=== PATIENT | male | born 1955 | race Caucasian/White ===

== ENCOUNTER 2019-10-02 12:34 | Outpatient (CLI) | payer OTHER, SELFPAY ==
--- NOTE | ~2019-10-02 | XR_ITS ---
EXAMINATION: XR lg joint inject/asp w image DATE: 10/02/2019 13:35 INDICATION: Left hip arthritis TECHNIQUE: A time-out was performed to verify the patient's name, date of , and procedure to b e performed. The procedure including the risks, benefits, and alternatives was discussed with the pat ient. Risks discussed included bleeding and infection. The patient understood the risks and agreed to proceed. The skin overlying the left hip joint was prepped and draped in usual sterile fashion. An esthetic was administered with 1% lidocaine subcutaneously. A 22 G needle was advanced under fluoros copic guidance into the joint. Injection of 0.6 mL of Omnipaque 240 confirmed intra-articular positi on of the needle. Subsequently, injectate consisting of 3 mm of a 2:1 mixture of 0.5% bupivacaine: 8 0 mg/mL Depo-Medrol for a total dose of 80 mg Depo-Medrol was instilled. Washout of contrast was seen confirming intra-articular administration. The needle was removed and the entry site was cleaned and dressed. There were no immediate complications. Fluoroscopy exposure time was 0.1 minutes. The tota l number of images was 2. FINDINGS: Real-time fluoroscopy demonstrates the needle in the left hip joint. Patient's pain prior t o procedure:3/10. Patient's pain following the procedure: 0/10. IMPRESSION: 1. Left hip joint injection of local anesthetic and steroid with decrease in the patient's presenting pain. Reviewed, dictated and finalized at location A. IMPRESSION: 1. Left hip joint injection of local anesthetic and steroid with decrease in th e patient's presenting pain.
== END 2019-10-02 12:35 | disposition home or self-care (01) ==
PROVIDERS: PCP Internal Medicine; Visit Provider Orthopaedic Surgery
DX: M16.12 Unilateral primary osteoarthritis, left hip (principal)
CPT/HCPCS: 20610; 77002; J1040; Q9966

== ENCOUNTER 2020-01-15 06:32 | Outpatient (CLI) | payer OTHER, SELFPAY ==
--- NOTE | ~2020-01-15 | XR_ITS ---
EXAMINATION: XR lg joint inject/asp w image DATE: 01/15/2020 09:55 INDICATION: Left hip arthritis. TECHNIQUE: A time-out was performed to verify the patient's name, date of , and procedure to b e performed. The procedure including the risks, benefits, and alternatives was discussed with the pat ient. Risks discussed included bleeding and infection. The patient understood the risks and agreed to proceed. The skin overlying the left hip joint was prepped and draped in usual sterile fashion. An esthetic was administered with 1% lidocaine subcutaneously. A 22 G needle was advanced under fluoros copic guidance into the joint. Injection of 1 mL of Omnipaque 240 confirmed intra-articular position of the needle. Subsequently, injectate consisting of 2 mL 0.5% bupivacaine and 1 mL 80 mg/mL Depo-M edrol was instilled. The needle was removed and the entry site was cleaned and dressed. There were no immediate complications. Fluoroscopy exposure time was 0.1 minutes. The total number of images was 2. FINDINGS: Real-time fluoroscopy demonstrates the needle in the left hip joint. Patient's pain prior t o procedure:5/10. Patient's pain following the procedure: 0/10. IMPRESSION: 1. Fluoroscopy guided left hip joint injection of local anesthetic and steroid with decrease in the p atient's presenting pain. Reviewed, dictated and finalized at location A. [employer]STATE [employer] IMPRESSION: 1. Fluoroscopy guided left hip joint injection of local anesthetic and steroid with decrease in the patient's presenting pain.
== END 2020-01-15 06:33 | disposition home or self-care (01) ==
PROVIDERS: PCP Internal Medicine; Visit Provider Orthopaedic Surgery
DX: M16.12 Unilateral primary osteoarthritis, left hip (principal)
CPT/HCPCS: 20610; 77002; J1040; Q9966

== ENCOUNTER → 2020-03-22 12:45 | Outpatient (CLI) | payer OTHER, SELFPAY ==
[2020-03-22 18:26] LABS: SARS-CoV-2 RNA PCR Negative
== END ==
PROVIDERS: Family Provider Internal Medicine; PCP Internal Medicine; Visit Provider Internal Medicine Gastroenterology
DX: Z01.812 Encounter for preprocedural laboratory examination (principal); Z20.822 Contact with and (suspected) exposure to COVID-19
CPT/HCPCS: C9803; U0003; U0005

== ENCOUNTER 2020-03-25 01:15 | Day surgery (SDC) | payer OTHER, SELFPAY ==
[2020-03-10 08:48] VITALS: BMI 33.7
[2020-03-25 08:27] LABS: Glucose Point of Care 149 (65-105)
[2020-03-25 08:30] VITALS: BP 142/77; PULSE 82; RESP 17; TEMP 36.2; O2SAT 98; BMI 33.3
[2020-03-25] MEDS: LACTATED RINGERS 1,000 ML 150 ML IV CONT (08:38)
--- NOTE | 2020-03-25 09:40 | WPDGICN ---
GI Consult Note Consult date/time: 03/25/20 09:40 HPI: Reason for visit is colonoscopy. This very pleasant gentleman seen in consultation request the primary physician. Impression: Screening and surveillance colonoscopy. The patient's history adenomatous colon polyps. Tobacco use. Diabetes mellitus. HTN. HLD. Obesity. Neuropathy. PAVEL. Recommendation: Colonoscopy. History: This very pleasant gentleman is here for screening and surveillance colonoscopy. He has a history of multiple adenomatous colon polyps. He is here for screening and surveillance. Patient's GI review systems negative. Physical examination: General: very pleasant patient in no acute distress. HEENT: Head was normocephalic sclerae is clear mouth without masses neck was supple. Heart: Rate rhythm regular without S3 or S4. Lungs: CTA. Abdomen: Soft with no guarding or rigidity. Bowel sounds were active. Neurologic: Cranial nerves 2 through 12 intact. No focal defects. No clonus. Musculoskeletal system: Revealed no joint tenderness or swelling no muscle atrophy. Extremities: Reveal no significant edema. Skin: Warm and dry with normal turgor. Mental status: intact. Patient is alert and oriented. Review of Systems Review of Systems: All systems reviewed & are unremarkable except as noted in HPI and below PMFSH Family History Family History Mother Cerebrovascular accident Family history of diabetes mellitus in first degree relative Father Family history of pancreatic cancer, Onset Age: 72 Patient's father is Diabetes mellitus Family history of malignant neoplasm Social History Social History Smoking packs per day: 1 Smoking cigarettes per day: 20.0 Years smoked: 44 Smoking pack-years: 44.00 Smoking status: Current every day smoker Tobacco type: cigarettes Second hand tobacco smoke exposure: No Alcohol intake: current Alcohol use details: SOCIAL Substance use: never Substance use type: does not use Living arrangements: with family Gender identity (if verbalized by the patient): Male Spiritual care concerns: No Meds Home Medications and Allergies Home Medications Medication Instructions Recorded Confirmed Type aspirin 325 mg tablet 325 mg PO DAILY 02/06/19 03/25/20 History dapagliflozin 5 mg tablet 5 mg PO QAM 02/06/19 03/25/20 History dulaglutide 1.5 mg/0.5 mL 0.75 mg SUB-Q WEEKLY 02/06/19 03/25/20 History subcutaneous pen injector insulin aspart U-100 100 unit/mL 1 sliding scale dose SUB-Q 02/06/19 03/25/20 History subcutaneous solution USEASDIRECTD insulin detemir U-100 100 unit/mL 100 unit SUB-Q DAILY 02/06/19 03/25/20 History (3 mL) subcutaneous pen metformin 500 mg tablet 2,000 mg PO BID tablet 02/06/19 03/25/20 History multivitamin 1 tablet PO DAILY 02/06/19 03/25/20 History amlodipine 10 mg tablet 10 mg PO DAILY #90 tablet 11/09/19 03/25/20 Rx lisinopril 40 mg tablet 40 mg PO DAILY #90 tablet 11/19/19 03/25/20 Rx sildenafil 100 mg tablet 100 mg PO DAILY PRN #8 tablet 01/09/20 03/25/20 Rx atorvastatin 40 mg tablet 40 mg PO DAILY #90 tablet 02/12/20 03/25/20 Rx fluoxetine 20 mg capsule 20 mg PO DAILY #90 cap 02/17/20 03/25/20 Rx Allergies Allergy/AdvReac Type Severity Reaction Status Date / Time No Known Allergies Allergy Unknown Verified 03/25/20 08:27 Vital Signs Vital Signs - 24 hr 03/25/20 08:30 Temperature 36.2 C L Pulse Rate 82 Respiratory Rate 17 Blood Pressure 142/77 H Pulse Oximetry 98
--- NOTE | 2020-03-25 09:56 | WPDANESEPPF ---
Anes - Initial Pre Proc Eval Procedure: Operation Date: 03/25/20 09:30 Proposed Procedures p Screening Colonoscopy - Pepe Mathew DO Date/Time: 03/25/20 09:56 Surgeon: Pepe Mathew DO Pre Op Diagnosis: neoplasm Screening Patient Data Age: 64 Gender: M Height: 6 ft 2 in Weight: 117.9 kg Last Vital Signs Temp 97.1 F L 03/25/20 08:30 Pulse 82 03/25/20 08:30 Resp 17 03/25/20 08:30 BP 142/77 H 03/25/20 08:30 Pulse Ox 98 03/25/20 08:30 Allergies Allergy/AdvReac Type Severity Reaction Status Date / Time No Known Allergies Allergy Unknown Verified 03/25/20 08:27 Home Medications Medication Instructions Recorded Confirmed Type aspirin 325 mg tablet 325 mg PO DAILY 02/06/19 03/25/20 History dapagliflozin 5 mg tablet 5 mg PO QAM 02/06/19 03/25/20 History dulaglutide 1.5 mg/0.5 mL 0.75 mg SUB-Q WEEKLY 02/06/19 03/25/20 History subcutaneous pen injector insulin aspart U-100 100 unit/mL 1 sliding scale dose SUB-Q 02/06/19 03/25/20 History subcutaneous solution USEASDIRECTD insulin detemir U-100 100 unit/mL 100 unit SUB-Q DAILY 02/06/19 03/25/20 History (3 mL) subcutaneous pen metformin 500 mg tablet 2,000 mg PO BID tablet 02/06/19 03/25/20 History multivitamin 1 tablet PO DAILY 02/06/19 03/25/20 History amlodipine 10 mg tablet 10 mg PO DAILY #90 tablet 11/09/19 03/25/20 Rx lisinopril 40 mg tablet 40 mg PO DAILY #90 tablet 11/19/19 03/25/20 Rx sildenafil 100 mg tablet 100 mg PO DAILY PRN #8 tablet 01/09/20 03/25/20 Rx atorvastatin 40 mg tablet 40 mg PO DAILY #90 tablet 02/12/20 03/25/20 Rx fluoxetine 20 mg capsule 20 mg PO DAILY #90 cap 02/17/20 03/25/20 Rx Laboratory Tests 03/25/20 08:23 POC Capillary Glucose 149 mg/dl H mg/dl (65-105) Patient hx anesthesia problems: none Family hx anesthesia problems: none PMFSH Past Medical History Medical History (Updated 03/25/20 @ 09:55 by Orlin Rodriguez MD) Diabetes PAVEL (obstructive sleep apnea) Other hyperlipidemia Type 2 diabetes mellitus without complications Family History Family History Mother Cerebrovascular accident Family history of diabetes mellitus in first degree relative Father Family history of pancreatic cancer, Onset Age: 72 Patient's father is Diabetes mellitus Family history of malignant neoplasm Social History Social History Smoking packs per day: 1 Smoking cigarettes per day: 20.0 Years smoked: 44 Smoking pack-years: 44.00 Smoking status: Current every day smoker Tobacco type: cigarettes Second hand tobacco smoke exposure: No Alcohol intake: current Alcohol use details: SOCIAL Substance use: never Substance use type: does not use Living arrangements: with family Gender identity (if verbalized by the patient): Male Spiritual care concerns: No Anes - Eval Final PreProcedure Day of Procedure 03/25/20 09:56 Patient weight: overweight Heart: regular rate and rhythm Lungs: clear to auscultation Airway: Mallampati scale class II Neurological: alert and oriented Last oral intake: >/= 8 hours ASA classification: III Emergent: no Anesthetic plan: proceed Anesthesia type and monitoring: general GIVS and standard monitoring Informed Consent: The patient's anesthetic plan and its attendant risks and benefits were discussed with the patient/family/POA. Questions were solicited and answers provided to the satisfaction of the patient/family/POA.
[2020-03-25 10:57] VITALS: BP 125/74; PULSE 79; RESP 17; O2SAT 97
[2020-03-25 11:07] VITALS: BP 129/80; PULSE 74; RESP 18; O2SAT 97
--- NOTE | 2020-03-25 11:14 | SUR.PHASEII ---
SPOKE WITH GARY IN DR. JAIN'S OFFICE MADE AN APPOINTMENT FOR PT, APR [address] BURTON'S REQUEST, THIS INFORMATION WAS WRITTEN ON DISCHARGE PAPER FOR PT AND SHARED WITH DR BURTON
[2020-03-25 11:17] VITALS: BP 124/74; PULSE 73; RESP 21; O2SAT 98
== END 2020-03-25 11:30 | disposition home or self-care (01) ==
PROVIDERS: Family Provider Internal Medicine; PCP Internal Medicine; Visit Provider Internal Medicine Gastroenterology
PROC: 0DJD8ZZ Inspection of Lower Intestinal Tract, Via Natural or Artificial Opening Endoscopic (ICD-10-PCS; CPT 45378; principal; 2020-03-25 09:30)
DX: Z12.11 Encounter for screening for malignant neoplasm of colon (principal); D12.2 Benign neoplasm of ascending colon; D12.3 Benign neoplasm of transverse colon; E11.9 Type 2 diabetes mellitus without complications; G47.33 Obstructive sleep apnea (adult) (pediatric); E78.5 Hyperlipidemia, unspecified; I10 Essential (primary) hypertension; F17.210 Nicotine dependence, cigarettes, uncomplicated; Z79.84 Long term (current) use of oral hypoglycemic drugs; Z79.4 Long term (current) use of insulin; Z79.82 Long term (current) use of aspirin
CPT/HCPCS: 45385; 88305; J2001; J2704; J7120

== ENCOUNTER 2020-05-17 09:36 | Outpatient (CLI) | payer OTHER, SELFPAY ==
--- NOTE | ~2020-05-17 | XR_ITS ---
EXAMINATION: XR chest 2V 05/17/2020 11:16 INDICATION: Preop examination. PROCEDURE: PA and lateral views of the chest COMPARISON: 01/28/2018 FINDINGS: The lungs are clear. The cardiomediastinal silhouette is within normal limits. There are no pleural effusions. There is no pneumothorax suspected. IMPRESSION: 1: NO ACUTE CARDIOPULMONARY DISEASE. Reviewed, dictated and finalized at location A.
--- NOTE | 2020-05-17 10:54 | ECG_ITS ---
Measurements Intervals [place] Rate: 80 P: 16 NH: 156 QRS: 40 QRSD: 144 T: 36 QT: 415 QTc: 480 Interpretive Statements SINUS RHYTHM WITH SINUS ARRHYTHMIA RIGHT BUNDLE BRANCH BLOCK ABNORMAL ECG Electronically Signed On 05-17-2020 12:19:13 CDT by Vincent Chen D.O.
[2020-05-17 11:18] LABS: Basophils Absolute Auto 0.1 K/mm3 (0.0-0.1); Basophils Percent Auto 0.5 % (0.2-1.2); Eosinophils Absolute Auto 0.2 K/mm3 (0-0.3); Eosinophils Percent Auto 2.3 % (0-4.4); Hematocrit 48.4 % (42.0-52.0); Hemoglobin 16.2 g/dL (14.0-18.0); Immature Granulocyte Absolute 0.04 K/mm3 (0.00-0.031); Immature Granulocyte Percent A 0.4 % (0-0.5); Lymphocytes Absolute Auto 2.14 K/mm3 (0.9-3.2); Lymphocytes Percent Auto 22.6 % (18.3-44.2); Mean Corpuscular HGB Conc 33.5 g/dl (32-36); Mean Corpuscular Hemoglobin 30.1 pg (26-34); Mean Corpuscular Volume 89.8 fl (80-100); Mean Platelet Volume 8.4 fl (7.4-10.4); Monocytes Absolute Auto 0.8 K/mm3 (0.1-0.6); Monocytes Percent Auto 8.2 % (2.6-8.5); Neutrophils Absolute Auto 6.2 K/mm3 (1.3-6.7); Platelet Count Result 280 k/mm3 (150-375); Red Blood Count 5.39 M/mm3 (4.6-6.20); Red Cell Distribution Width 13.2 % (11.5-14.5); White Blood Count 9.5 K/mm3 (4.5-10.0)
[2020-05-17 11:31] LABS: Anion Gap 5 mmol/L (8-16); Blood Urea Nitrogen 19 mg/dL (9-20); Calcium 9.5 mg/dL (8.4-10.2); Carbon Dioxide 31 mmol/L (22-30); Chloride 102 mmol/L (98-107); Estimated Glomerular Filt Rate > 60; Glucose 131 mg/dL (75-110); Potassium 4.3 mmol/L (3.4-5.0); Sodium 138 mmol/L (137-145)
[2020-05-17 12:01] LABS: Carcinoembryonic Antigen 3.6 ng/mL (0.0-3.0)
== END 2020-05-17 09:37 | disposition home or self-care (01) ==
LOC: ANHSURGERY 09:38
PROVIDERS: PCP Internal Medicine; Visit Provider Surgery
DX: Z01.818 Encounter for other preprocedural examination (principal); E11.9 Type 2 diabetes mellitus without complications; Z87.891 Personal history of nicotine dependence; R94.31 Abnormal electrocardiogram [ECG] [EKG]
CPT/HCPCS: 36415; 71046; 80048; 82378; 85025; 86850; 86900; 86901; 93005

== ENCOUNTER → 2020-05-22 01:49 | Outpatient (CLI) | payer OTHER, SELFPAY ==
[2020-05-22 20:22] LABS: SARS-CoV-2 RNA PCR Negative
== END ==
PROVIDERS: PCP Internal Medicine; Visit Provider Surgery
DX: Z01.812 Encounter for preprocedural laboratory examination (principal); Z20.822 Contact with and (suspected) exposure to COVID-19
CPT/HCPCS: C9803; U0003; U0005

== ENCOUNTER 2020-05-26 12:14 | Inpatient (IN) | payer OTHER, SELFPAY ==
[2020-05-17 10:10] VITALS: BP 145/69; PULSE 84; RESP 18; TEMP 36.6; O2SAT 97; BMI 34.0
--- NOTE | 2020-05-25 08:16 | PM.IMHP ---
H&P: HPI History of Present Illness Date/Time: 05/25/20 08:16 Chief Complaint: Recurrent colon polyp Narrative: The patient is a 64-year-old man who was seen in the office after having repeat colonoscopy in late February of this year. He was noted to have a recurrent polyp in the proximal transverse colon. This polyp had been colonoscopically removed a couple of times prior to that. It had been tattooed after 1 of the removals. On the colonoscopy in February, the polyp had clearly recurred. This is at least a 2nd or 3rd recurrence. Patient was seen in the office. He has been prepared for surgery. He is taken to the operating room now for hand access laparoscopic right colectomy to remove this multiply recurrent proximal transverse colon polyp. Pathology on the polyp has shown tubular adenoma with no signs of malignancy. He has had no prior abdominal surgery. He is an insulin-dependent diabetic, a smoker, and has obstructive sleep apnea. Review of Systems Review of Systems: All systems reviewed & are unremarkable except as noted in HPI and below Constitutional: Constitutional: Denies headache(s) ENT: Denies headache(s) Cardiovascular: Cardiovascular: Denies chest pain and Denies dyspnea Respiratory: Respiratory: Denies cough and Denies dyspnea Gastrointestinal: Gastrointestinal: Reports as per HPI, Denies bloating, Denies constipation and Denies nausea Neurologic: Denies confusion and Denies headache(s) Psychiatric: Psychiatric: Denies abnormal sleep pattern, Denies confusion and Denies memory loss Allergic/Immunologic: Allergic/Immunologic: Reports seasonal rhinorrhea COUNTS INCLUDE 234 BEDS AT THE [facility] Past Medical History Medical History Diabetes Hypertension PAVEL (obstructive sleep apnea) Other hyperlipidemia Type 2 diabetes mellitus without complications Surgical History Surgical History History of colonoscopy Family History Family History Mother Cerebrovascular accident Family history of diabetes mellitus in first degree relative Father Family history of pancreatic cancer, Onset Age: 72 Patient's father is Diabetes mellitus Family history of malignant neoplasm Sibling Diabetes mellitus Social History Social History Smoking packs per day: 1.5 Smoking cigarettes per day: 30.0 Years smoked: 42 Smoking pack-years: 63.00 Smoking status: Current every day smoker Tobacco type: cigarettes Second hand tobacco smoke exposure: No Additional smoking assessment comments: REDUCING CIG TO APPROX 1/2 PACK/DAY CURRENTLY Alcohol intake: current Substance use: never Substance use type: does not use Additional living arrangements comments: [facility] Gender identity (if verbalized by the patient): Male Spiritual care concerns: No Meds Home Medications and Allergies Home Medications Medication Instructions Recorded Confirmed Type aspirin 325 mg tablet 325 mg PO DAILY 02/06/19 05/17/20 History dapagliflozin 5 mg tablet 5 mg PO QAM 02/06/19 05/17/20 History dulaglutide 1.5 mg/0.5 mL 0.75 mg SUB-Q WEEKLY 02/06/19 05/17/20 History subcutaneous pen injector insulin aspart U-100 100 unit/mL 1 sliding scale dose SUB-Q 02/06/19 05/17/20 History subcutaneous solution USEASDIRECTD insulin detemir U-100 100 unit/mL 65 unit SUB-Q BID 02/06/19 05/17/20 History (3 mL) subcutaneous pen metformin 500 mg tablet 2,000 mg PO QAM tablet 02/06/19 05/17/20 History multivitamin 1 tablet PO DAILY 02/06/19 05/17/20 History sildenafil 100 mg tablet 100 mg PO DAILY PRN #8 tablet 01/09/20 05/17/20 Rx atorvastatin 40 mg tablet 40 mg PO DAILY #90 tablet 02/12/20 05/17/20 Rx fluoxetine 20 mg capsule 20 mg PO DAILY #90 cap 02/17/20 05/17/20 Rx amlodipine 10 mg PO QAM 05/17/20 05/17/20 History lisino
[2020-05-26] VITALS (17 sets, daily range): BP systolic 86–130; BP diastolic 40–64; PULSE 67–90; RESP 14–20; TEMP 36.2–37.3; O2SAT 90–100; BMI 34.4
[2020-05-26] MEDS: ACETAMINOPHEN 500 MG TABLET 1000 MG PO (06:44)
[2020-05-26] MEDS: ALVIMOPAN 12 MG CAPSULE PO (06:44)
[2020-05-26] MEDS: LACTATED RINGERS 1,000 ML 30 ML IV CONT ×2 (06:45→10:24)
[2020-05-26 06:48] LABS: Glucose Point of Care 262 (65-105)
[2020-05-26] MEDS: KETOROLAC 15 MG/ML VIAL (*BKC) IV PUSH (06:48)
--- NOTE | 2020-05-26 07:03 | WPDHPUPDATE1 ---
History and Physical Update Update Date/Time: 05/26/20 07:03 History and Physical has been reviewed, including an updated exam of the patient. There are NO changes in the patient's condition. Risks, benefits, and alternatives have been discussed and questions answered. Patient agrees to proceed with procedure.
[2020-05-26] MEDS: INSULIN HUMAN REGULAR (*BKC) 100 UNITS/ML SUB-Q (07:17)
--- NOTE | 2020-05-26 07:19 | WPDANESEPPF ---
Anes - Initial Pre Proc Eval Procedure: Operation Date: 05/26/20 07:30 Proposed Procedures p Hand Assisted Laparoscopic Right Hemicolectomy - Brody Snyder MD Date/Time: 05/26/20 07:19 Surgeon: Brody Snyder MD Pre Op Diagnosis: transverse Colon Polyp Patient Data Age: 64 Gender: M Height: 6 ft 2 in Weight: 120.3 kg Last Vital Signs Temp 36.6 C 05/17/20 10:10 Pulse 84 05/17/20 10:10 Resp 18 05/17/20 10:10 BP 145/69 H 05/17/20 10:10 Pulse Ox 97 05/17/20 10:10 Allergies Allergy/AdvReac Type Severity Reaction Status Date / Time No Known Allergies Allergy Unknown Verified 05/17/20 09:48 Home Medications Medication Instructions Recorded Confirmed Type aspirin 325 mg tablet 325 mg PO DAILY 02/06/19 05/17/20 History dapagliflozin 5 mg tablet 5 mg PO QAM 02/06/19 05/17/20 History dulaglutide 1.5 mg/0.5 mL 0.75 mg SUB-Q WEEKLY 02/06/19 05/17/20 History subcutaneous pen injector insulin aspart U-100 100 unit/mL 1 sliding scale dose SUB-Q 02/06/19 05/17/20 History subcutaneous solution USEASDIRECTD insulin detemir U-100 100 unit/mL 65 unit SUB-Q BID 02/06/19 05/17/20 History (3 mL) subcutaneous pen metformin 500 mg tablet 2,000 mg PO QAM tablet 02/06/19 05/17/20 History multivitamin 1 tablet PO DAILY 02/06/19 05/17/20 History sildenafil 100 mg tablet 100 mg PO DAILY PRN #8 tablet 01/09/20 05/17/20 Rx atorvastatin 40 mg tablet 40 mg PO DAILY #90 tablet 02/12/20 05/17/20 Rx fluoxetine 20 mg capsule 20 mg PO DAILY #90 cap 02/17/20 05/17/20 Rx amlodipine 10 mg PO QAM 05/17/20 05/17/20 History lisinopril 40 mg PO QAM 05/17/20 05/17/20 History testosterone 50 mg TOPICAL DAILY 05/17/20 05/17/20 History Laboratory Tests 05/26/20 06:41 POC Capillary Glucose 262 mg/dl H mg/dl (65-105) Patient hx anesthesia problems: none Family hx anesthesia problems: none PMFSH Past Medical History Medical History Diabetes Hypertension PAVEL (obstructive sleep apnea) Other hyperlipidemia Type 2 diabetes mellitus without complications Surgical History Surgical History History of colonoscopy Family History Family History Mother Cerebrovascular accident Family history of diabetes mellitus in first degree relative Father Family history of pancreatic cancer, Onset Age: 72 Patient's father is Diabetes mellitus Family history of malignant neoplasm Sibling Diabetes mellitus Social History Social History Smoking packs per day: 1 Smoking cigarettes per day: 20.0 Years smoked: 44 Smoking pack-years: 44.00 Smoking status: Current every day smoker Tobacco type: cigarettes Second hand tobacco smoke exposure: No Additional smoking assessment comments: REDUCING CIG TO APPROX 1/2 PACK/DAY CURRENTLY Alcohol intake: current Substance use: never Substance use type: does not use Living arrangements: with family Additional living arrangements comments: [facility] Gender identity (if verbalized by the patient): Male Spiritual care concerns: No Anes - Eval Final PreProcedure Day of Procedure 05/26/20 07:19 Patient weight: obese Heart: regular rate and rhythm Lungs: decreased breath sounds Airway: Mallampati scale class II Neurological: alert and oriented Last oral intake: >/= 8 hours ASA classification: III Emergent: no Anesthetic plan: proceed Anesthesia type and monitoring: general ETT and standard monitoring Informed Consent: The patient's anesthetic plan and its attendant risks and benefits were discussed with the patient/family/POA. Questions were solicited and answers provided to the satisfaction of the patient/family/POA.
[2020-05-26] MEDS: ceFAZolin 3 GM/D5W 100 ML 100 ML IVPB (07:30)
--- NOTE | 2020-05-26 07:35 | PM.PROC ---
Procedure Note - Detailed Date of procedure: 05/26/20 Pre-op diagnosis: transverse Colon Polyp Recurrent proximal transverse colon polyp Post-op diagnosis: other (Recurrent proximal transverse colon polyp, Meckel's diverticulum) Procedure performed: Hand access laparoscopic right colectomy, Meckel's diverticulectomy Description of procedure: The patient was taken to surgery and induced into general anesthesia. The abdomen was prepped and draped. The proposed hand access incision was marked in the upper abdomen in the midline above the umbilicus. It was about an 8 cm incision. It was marked on the skin. Local was infiltrated in the area of the anticipated incision and in the deeper subcutaneous tissues. Incision was made and dissection was carried down through the midline fascia. The peritoneal cavity was entered. I checked around the area. There were no anterior abdominal wall adhesions. The Jesus wound guard was then placed. A sponge was placed in the abdomen. The GelPort was then placed. With a hand in the abdomen, I found the area in the right lower quadrant where the camera port would be placed. Local was infiltrated here. Incision was made and a 5 mm trocar was then placed in the right lower quadrant just above the inguinal ligament. We insufflated through here. I then placed under direct visualization another 5 mm port in the left mid abdomen. Again local was used and a 5 mm trocar was placed. We then placed the patient in Trendelenburg with the right side somewhat elevated. I looked at the proximal half of the transverse colon and was easily able to identify the area that had been tattooed from previous colonoscopy. The peritoneum was entered just posterior to the cecum and the appendix. We then entered the retroperitoneum and began a medial to lateral dissection of the ascending colon mesentery. I continued the retroperitoneal dissection up to the transverse mesocolon. During this dissection, some venous bleeding in the area of the head of the pancreas began. This was not vigorous bleeding and was obviously venous. I initially tried to use the LigaSure to stop the bleeding but the vessel had retracted and this was not effective. I then used gentle pressure as well as Surgiflo and the bleeding did cease. The rest of the retroperitoneal dissection was continued uneventfully. We stayed above the duodenum and I was able to palpate the right kidney in the retroperitoneum, its expected position. From there I then elevated the distal ileum and terminal ileum. The ileocolic artery was identified. I divided the mesentery proximal to the ileocolic artery. This division was done with the LigaSure. Literally all the dissection was done with the LigaSure. I opened the mesentery up to an area on the distal ileum which would be our proximal extent of resection. I then proceeded staying fairly close to the root of the mesentery over to the ileocolic artery. I dissected and exposed the ileocolic artery near its origin. It was then cauterized and divided with the LigaSure. There was no bleeding. I then continued the mesenteric dissection up to the transverse mesocolon. From there I then went to the lateral peritoneal attachments to the cecum and ascending colon. These were divided with the LigaSure as well. This was continued up to the hepatic flexure and likewise the hepatocolic ligament was divided with the LigaSure. I was then able to expose the transverse colon mesentery. I started the division of the transverse colon mesentery. Vascular structures within were divided using the LigaSure. The right branch of the middle colic artery was divided with the LigaSure. I divided a bit more of the transverse mesocolon to mobilize to the midportion of the transverse colon. I also freed up gastrocolic attachments with LigaSure. From there, we then stopped insufflation and I removed the GelPort. The transverse colon, ascending colon, and terminal ileum were then
[2020-05-26] MEDS: BUPIVACAINE/EPINEPHRINE 0.5% 30 ML VIAL INFILTRATE (08:20)
[2020-05-26] MEDS: HEMOSTATIC MATRIX (SURGIFLO with THROMBIN) KIT 1 KIT XX (08:55)
[2020-05-26 10:42] LABS: Glucose Point of Care 152 (65-105)
--- NOTE | 2020-05-26 12:12 | SUR.PHASEI ---
dr burks aware of soft bp. pt will receive 100 ml/hr fluids on floor and he was ok with that.
--- NOTE | 2020-05-26 12:30 | PC.NURSE ---
This patient, Ryan Livingston, was admitted to Medical Room 347-. Patient/family oriented to hospital policies and general routines including ID bracelet, bed and alarms, visiting hours, pain management, procedures, bathroom and other care routines, personal items, smoking policy, room service/diet, and visiting hours. Information on how to activate the Rapid Response Team has been discussed. Patient/Family are encouraged to report perceived risks to care and to ask questions if they do not understand what they are told or what they should do.
[2020-05-26] MEDS: LACTATED RINGERS 1,000 ML 100 ML IV CONT ×2 (12:32→23:04)
--- NOTE | 2020-05-26 15:07 | PHAR ---
Drug Name: Devantehanna Ingredients: Dapagliflozin Propanediol -- 5 MG Related Documents: DRUGDEX Evaluations - DAPAGLIFLOZIN Color: Yellow Shape: [place] Imprint: [id number] Form: Oral Tablet
[2020-05-26 16:43] LABS: Glucose Point of Care 191 (65-105)
[2020-05-26] MEDS: FAMOTIDINE 20 MG/2 ML VIAL IV PUSH (20:27)
[2020-05-26] MEDS: ENOXAPARIN 30 MG/0.3 ML SYRINGE SUB-Q (20:28)
[2020-05-26] MEDS: INSULIN DETEMIR 100 UNITS/ML 65 UNITS SUB-Q (20:33)
[2020-05-26 20:50] LABS: Glucose Point of Care 221 (65-105)
[2020-05-27 04:38] VITALS: BP 121/68; PULSE 77; RESP 18; TEMP 36.1; O2SAT 98
[2020-05-27 06:47] LABS: Hemoglobin 15.5 g/dL (14.0-18.0); Mean Corpuscular Hemoglobin 30.2 pg (26-34); Mean Corpuscular Volume 91.6 fl (80-100); Mean Platelet Volume 8.7 fl (7.4-10.4); Platelet Count Result 283 k/mm3 (150-375); Red Blood Count 5.13 M/mm3 (4.6-6.20); Red Cell Distribution Width 13.2 % (11.5-14.5); White Blood Count 14.3 K/mm3 (4.5-10.0)
[2020-05-27 06:59] LABS: Anion Gap 6 mmol/L (8-16); Blood Urea Nitrogen 19 mg/dL (9-20); Calcium 8.9 mg/dL (8.4-10.2); Carbon Dioxide 31 mmol/L (22-30); Chloride 104 mmol/L (98-107); Estimated CRCL calculation 66 ml/min; Estimated Glomerular Filt Rate 51; Glucose 172 mg/dL (75-110); Potassium 4.5 mmol/L (3.4-5.0); Sodium 141 mmol/L (137-145)
[2020-05-27 07:18] LABS: Glucose Point of Care 171 (65-105)
--- NOTE | 2020-05-27 07:32 | WPDANESPN ---
Anes - Prog Note Post-Op Date/Time: 05/27/20 07:32 Cardiovascular status: normal Respiratory status: normal Airway patency: baseline Mental status: baseline Post-Op hydration status: normal Vital Signs: Last Vital Signs Temp 36.1 C L 05/27/20 04:38 Pulse 77 05/27/20 04:38 Resp 18 05/27/20 04:38 BP 121/68 05/27/20 04:38 Pulse Ox 98 05/27/20 04:38 Pain Score (VAS): 0 I/O: Intake & Output 05/26/20 05/26/20 05/27/20 15:59 23:59 07:59 Intake Total 1160 1240 250 Balance 1160 1240 250 Laboratory Tests 05/27/20 06:12 05/27/20 06:12 05/26/20 05/26/20 05/26/20 10:39 16:38 20:31 WBC RBC Hgb Hct MCV MCH MCHC RDW Plt Count MPV Sodium Potassium Chloride Carbon Dioxide Anion Gap BUN Creatinine Estim Creat Clear Calc Estimated GFR Glucose POC Capillary Glucose 152 H 191 H 221 H Calcium 05/27/20 05/27/20 05/27/20 06:12 06:12 07:06 WBC 14.3 H RBC 5.13 Hgb 15.5 Hct 47.0 MCV 91.6 MCH 30.2 MCHC 33.0 RDW 13.2 Plt Count 283 MPV 8.7 Sodium 141 Potassium 4.5 Chloride 104 Carbon Dioxide 31 H Anion Gap 6 L BUN 19 Creatinine 1.40 H Estim Creat Clear Calc 66 Estimated GFR 51 L Glucose 172 H POC Capillary Glucose 171 H Calcium 8.9 Post-procedural complaints: none Patient Feedback: Patient satisfied with anesthetic care.
--- NOTE | 2020-05-27 07:58 | PM.DS ---
DS: Admitting Diagnosis Admitting Diagnosis Admitting Diagnosis: Recurrent colon polyps DS: Discharge Diagnosis Discharge Diagnosis (1) Polyp of transverse colon: Qualifiers: Colon polyp type: adenomatous Qualified Code(s): D12.3 - Benign neoplasm of transverse colon Code(s): K63.5 - Polyp of colon Status: Chronic Assessment and Plan: Hand access laparoscopic right colectomy with hand-sewn ileo transverse anastomosis 05/26/2020. (2) Meckel's diverticulum: Code(s): Q43.0 - Meckel's diverticulum (displaced) (hypertrophic) Status: Resolved Assessment and Plan: noted at the time of surgery and resected at the surgical procedure. Pathology is pending as is the colon pathology. (3) IDDM (insulin dependent diabetes mellitus): Status: Chronic Assessment and Plan: Hospitalist service consulted for postop medical management. Hemoglobin A1c was ordered as well as home CPAP settings. No consult note at the time of discharge. (4) Hypertension: Qualifiers: Hypertension type: essential hypertension Qualified Code(s): I10 - Essential (primary) hypertension Code(s): I10 - Essential (primary) hypertension Status: Chronic (5) Cigarette smoker: Code(s): F17.210 - Nicotine dependence, cigarettes, uncomplicated Status: Chronic (6) PAVEL on CPAP: Code(s): G47.33 - Obstructive sleep apnea (adult) (pediatric); Z99.89 - Dependence on other enabling machines and devices Status: Chronic DS: Summary Hospital Course Hospital Course: patient is a 64-year-old man who had a proximal transverse colon polyp removed colonoscopically. This polyp recurred and was again removed colonoscopically this time with the area tattooed. In February of 2020 he had another colonoscopy and the polyp had recurred yet again. Biopsies of this polyp had shown tubular adenoma with no sign of malignancy. Patient was seen in the office and laparoscopic right hemicolectomy was discussed. He was prepared for surgery and then taken to the operating room on the day of admission 05/25/2020 for hand assisted laparoscopic right hemicolectomy. Hand-sewn ileocolonic anastomosis was performed. He was also found to incidentally have a Meckel's diverticulum. This was resected as well at the time of surgery. Postoperatively, the patient did very well. He was tolerating solid food and had a bowel movement later in the day, the day of surgery. He was comfortable and ambulatory taking no analgesics on postop day 1. He is able to be discharged on postop day 1 in good condition. Pathology is pending. Time Spent with Patient Time attestation: Total time spent providing and/or coordinating discharge services: Exam Const: General: comfortable and no acute distress; No confusion Orientation/consciousness: patient oriented x3 and No confusion GI: Inspection: non-distended, incision ( All incisions dry and healing well) and obesity GI Palp: Yes Soft to palpation, Yes Tenderness to palpation present (GI) ( minimal incisional tenderness), No Guarding due to palpation present (GI) and No Rebound tenderness present Auscultation: normal bowel sounds Neuro: General: patient oriented x3, no focal motor deficits and No confusion Extrem: General: no calf tenderness and no edema Psych: Affect: normal affect Insight: Good insight present (Psych) Judgement: Good judgement present (Psych) DS: Data Data Completed and Pending Pending studies at discharge: Pending at discharge 05/26/20 09:15 Surgical [PTH] Routine Labs on day of discharge: Labs from last 24 hours 05/27/20 05/27/20 05/27/20 07:06 06:12 06:12 WBC 14.3 H RBC 5.13 Hgb 15.5 Hct 47.0 MCV 91.6 MCH 30.2 MCHC 33.0 RDW 13.2 Plt Count 283 MPV 8.7 Sodium 141 Potassium 4.5 Chloride 104 Carbon Dioxide 31 H Anion Gap 6 L BUN 19 Creatinine 1.40 H Estim Cr
[2020-05-27] MEDS: FAMOTIDINE 20 MG/2 ML VIAL IV PUSH (08:19)
[2020-05-27] MEDS: ASPIRIN 325 MG TABLET PO (08:20)
[2020-05-27] MEDS: MULTIVITAMINS THERAPEUTIC TAB (*BKC) 1 TABLET PO (08:20)
[2020-05-27] MEDS: FLUoxetine HCL 20 MG CAPSULE PO (08:20)
[2020-05-27] MEDS: ENOXAPARIN 30 MG/0.3 ML SYRINGE SUB-Q (08:20)
[2020-05-27] MEDS: ATORVASTATIN 40 MG TABLET PO (08:20)
[2020-05-27] MEDS: amLODIPine BESYLATE 5 MG TABLET 10 MG PO (08:20)
[2020-05-27] MEDS: INSULIN DETEMIR 100 UNITS/ML 65 UNITS SUB-Q (08:23)
[2020-05-27 09:14] LABS: Hemoglobin A1C 6.7 % (<5.7)
[2020-05-27] MEDS: ALVIMOPAN 12 MG CAPSULE PO (09:26)
== END 2020-05-27 10:17 | disposition home or self-care (01) | DRG 331 ==
LOC: ANH3MED 12:18
PROVIDERS: Physician Assistant; Admitting Provider Surgery; PCP Internal Medicine; Visit Provider Surgery
PROC: 0DB80ZZ Excision of Small Intestine, Open Approach (ICD-10-PCS; CPT 44160; principal; 2020-05-26 07:30)
DX: D12.3 Benign neoplasm of transverse colon (principal); Q43.0 Meckel's diverticulum (displaced) (hypertrophic); I10 Essential (primary) hypertension; G47.33 Obstructive sleep apnea (adult) (pediatric); E78.5 Hyperlipidemia, unspecified; E11.9 Type 2 diabetes mellitus without complications; F17.210 Nicotine dependence, cigarettes, uncomplicated; E66.9 Obesity, unspecified; Z68.34 Body mass index [BMI] 34.0-34.9, adult
CPT/HCPCS: 36415; 80048; 82948; 83036; 85027; 88304; 88307; A9270; J0690; J1100; J1650; J1815; J1885; J2405; J2704; J2710; J3010; J7120

== ENCOUNTER 2020-10-29 10:42 | Outpatient (CLI) | payer MEDICARE, SELFPAY ==
--- NOTE | ~2020-10-29 | XR_ITS ---
EXAMINATION: XR lg joint inject/asp w image DATE: 10/29/2020 11:27 INDICATION: Left hip arthritis TECHNIQUE: A time-out was performed to verify the patient's name, date of , and procedure to b e performed. The procedure including the risks, benefits, and alternatives was discussed with the pat ient. Risks discussed included bleeding and infection. The patient understood the risks and agreed to proceed. The skin overlying the left hip joint was prepped and draped in usual sterile fashion. An esthetic was administered with 1% lidocaine subcutaneously. A 22 G needle was advanced under fluoros copic guidance into the joint. Injection of 1 mL of Omnipaque 240 confirmed intra-articular position of the needle. Subsequently, injectate consisting of 3 mL of a 2:1 mixture of 0.5% Marcaine: 80 mg/ mL Depo-Medrol for a total dose of 80 mg Depo-Medrol was instilled. Washout of contrast was seen conf irming intra-articular administration. The needle was removed and the entry site was cleaned and dres sed. There were no immediate complications. Fluoroscopy exposure time was 0.1 minutes. The total num sergey of images was 2. FINDINGS: Real-time fluoroscopy demonstrates the needle in the left hip joint. Patient's pain prior t o procedure:05/05. Patient's pain following the procedure: 03/07. IMPRESSION: 1. Successful left hip joint injection of local anesthetic and steroid with decrease in the patient's presenting pain. Reviewed, dictated and finalized at location A. IMPRESSION: 1. Successful left hip joint injection of local anesthetic and steroid with dec rease in the patient's presenting pain.
== END 2020-10-29 10:43 | disposition home or self-care (01) ==
PROVIDERS: PCP Internal Medicine; Visit Provider Orthopaedic Surgery
DX: M25.552 Pain in left hip (principal); M17.12 Unilateral primary osteoarthritis, left knee
CPT/HCPCS: 20610; 77002; J1040; Q9966

== ENCOUNTER 2021-03-16 09:53 | Outpatient (CLI) | payer MEDICARE, SELFPAY ==
--- NOTE | ~2021-03-16 | CT_ITS ---
EXAMINATION: CT lung screening DATE: 03/16/2021 10:13 INDICATION: Z87.891 - Personal history of nicotine dependence TECHNIQUE: Computed tomography (CT) of the chest was performed without intravenous contrast. Addition al 3D reconstructions utilizing coronal maximum intensity projection (MIP) were performed. Automated exposure control and iterative reconstruction technique were employed. The dose-length product was 35 5.51 mGy-cm. COMPARISON: None FINDINGS: Moderate emphysema with upper lung predominance. Small region of mild linear discoid atelectasis/scar ring at the lingula. A few <3 mm nodules in the bilateral upper lobes, one on the right which is calc ified consistent with old granulomatous disease. No other larger pulmonary nodules identified. No pne umonia, pulmonary edema or pleural effusion. Heart size is normal. Atherosclerotic coronary artery ca lcification. No pericardial effusion. Thoracic aorta is normal in caliber. No pathologically enlarged thoracic lymphadenopathy. Postoperative change of a right hemicolectomy with ileocolic anastomosis i n the right upper quadrant. Severe lower cervical and mild to moderate thoracic spondylosis. IMPRESSION: 1. Lung-RADS category 2: Benign appearance or behavior. Continue annual screening with noncontrast lo w-dose chest CT in 12 months. 2. Moderate emphysema. Reviewed, dictated and finalized at location A. H [employer] IMPRESSION: 1. Lung-RADS category 2: Benign appearance or behavior. Continue annual screeni ng with noncontrast low-dose chest CT in 12 months. 2. Moderate emphysema.
== END 2021-03-16 09:54 | disposition home or self-care (01) ==
PROVIDERS: PCP Internal Medicine; Visit Provider Internal Medicine
DX: Z12.2 Encounter for screening for malignant neoplasm of respiratory organs (principal); Z87.891 Personal history of nicotine dependence; J43.9 Emphysema, unspecified
CPT/HCPCS: 71271

== ENCOUNTER 2021-05-23 08:18 | Outpatient (CLI) | payer MEDICARE, SELFPAY ==
--- NOTE | ~2021-05-23 | XR_ITS ---
EXAMINATION: XR lg joint inject/asp w image DATE: 05/23/2021 09:05 INDICATION: Left hip arthritis. TECHNIQUE: A time-out was performed to verify the patient's name, date of , and procedure to b e performed. The procedure including the risks, benefits, and alternatives was discussed with the pat ient. Risks discussed included bleeding and infection. The patient understood the risks and agreed to proceed. The skin overlying the left hip joint was prepped and draped in usual sterile fashion. An esthetic was administered with 1% lidocaine subcutaneously. A 22 G needle was advanced under fluoros copic guidance into the joint. Injection of 1 mL of Omnipaque 240 confirmed intra-articular position of the needle. Subsequently, injectate consisting of 2 mL 0.5% bupivacaine and 2 mL 40 mg/mL Depo-M edrol was instilled. The needle was removed and the entry site was cleaned and dressed. There were no immediate complications. Fluoroscopy exposure time was 0.1 minutes. The total number of images was 2. FINDINGS: Real-time fluoroscopy demonstrates the needle in the left hip joint. Patient's pain prior t o procedure:1/10. Patient's pain following the procedure: 0/10. IMPRESSION: 1. Fluoroscopy guided left hip joint injection of local anesthetic and steroid with decrease in the p atient's presenting pain. Reviewed, dictated and finalized at location A. IMPRESSION: 1. Fluoroscopy guided left hip joint injection of local anesthetic and steroid with decrease in the patient's presenting pain.
== END 2021-05-23 08:19 | disposition home or self-care (01) ==
LOC: ANHIMG 08:21
PROVIDERS: PCP Internal Medicine; Visit Provider Nurse Practitioner Family
DX: M16.12 Unilateral primary osteoarthritis, left hip (principal)
CPT/HCPCS: 20610; 77002; J1040; Q9966

== ENCOUNTER 2021-09-07 13:59 | Outpatient (CLI) | payer MEDICARE, SELFPAY ==
--- NOTE | ~2021-09-07 | US_ITS ---
EXAMINATION: US art doppler w press LE BI DATE: 09/07/2021 15:40 CDT INDICATION: Hypertension. Peripheral vascular disease. History of smoking. Leg pain. Claudication. TECHNIQUE: Segmental pressures and plethysmographic and Doppler waveforms of the brachial and lower e xtremity arteries were obtained. COMPARISON: None. FINDINGS: Right and left brachial artery pressures of 147 mm Hg and 149 mm Hg, respectively, are concordant (no rmal difference <= 30 mmHg). The right high-thigh pressure index is not obtained. The right ankle-brachial index (ROXY) is 0.88 (no rmal >= 0.9-1.0). The right great toe-brachial index (TBI) is 0.62 (normal >= 0.60). The right lower extremity segmental pressure gradients are increased below the ankle (normal gradients <= 20-30 mmHg between adjacent levels on the same leg or the same levels on the two legs). Arterial Doppler wavefor ms are biphasic and monophasic. The left high-thigh pressure index is not obtained. The left ROXY is 0.62. The left TBI is 0.42. The l eft lower extremity segmental pressure gradients are increased below the ankle. Arterial Doppler wave forms are biphasic and monophasic. IMPRESSION: 1. Diminished right ankle and toe brachial indices consistent with mild peripheral arterial disease. 2: Diminished left ankle and toe brachial indices, consistent with mild-moderate peripheral arterial disease. Reviewed, dictated and finalized at location A. IMPRESSION: 1. Diminished right ankle and toe brachial indices consistent with mild periphe ral arterial disease. 2: Diminished left ankle and toe brachial indices, consistent with mild-moderat e peripheral arterial disease.
--- NOTE | ~2021-09-07 | CT_ITS ---
EXAMINATION: CT lung screening DATE: 09/07/2021 15:17 INDICATION: Personal history of tobacco dependence TECHNIQUE: Computed tomography (CT) of the chest was performed without intravenous contrast. The dose -length product was 237.36 mGy-cm. Automated exposure control and iterative reconstruction technique were employed. COMPARISON: CT dated 03/16/2021 FINDINGS: No significant pleural or pericardial effusion. No thoracic lymphadenopathy. Heart size nor mal. Upper abdomen is unremarkable. There are a few pulmonary nodules measuring 2 mm or less. There i s moderate emphysema. No endobronchial lesions. No pneumothorax. No thoracic lymphadenopathy. Mild th oracic spondylosis. No acute osseous abnormality. IMPRESSION: 1. Lung-RADS category 2: Benign appearance or behavior. Continue annual screening with noncontrast lo w-dose chest CT in 12 months. Reviewed, dictated and finalized at location A. IMPRESSION: 1. Lung-RADS category 2: Benign appearance or behavior. Continue annual screeni ng with noncontrast low-dose chest CT in 12 months.
== END 2021-09-07 14:00 | disposition home or self-care (01) ==
PROVIDERS: PCP Internal Medicine; Visit Provider Internal Medicine
DX: Z12.2 Encounter for screening for malignant neoplasm of respiratory organs (principal); Z87.891 Personal history of nicotine dependence; I73.9 Peripheral vascular disease, unspecified; R94.30 Abnormal result of cardiovascular function study, unspecified
CPT/HCPCS: 71271; 93923

== ENCOUNTER 2022-06-01 07:40 | Outpatient (CLI) | payer MEDICARE, SELFPAY ==
--- NOTE | ~2022-06-01 | CT_ITS ---
EXAMINATION: CT diagnostic chest wo con DATE: 06/01/2022 07:54 INDICATION: Cough, personal history of nicotine dependence TECHNIQUE: Computed tomography (CT) of the chest was performed without intravenous contrast. The dose -length product (DLP) was 205.62 mGy-cm. Automated exposure control and iterative reconstruction tech Mobilingaque were employed. COMPARISON: 09/07/2021 FINDINGS: There is moderate emphysema. Again noted are multiple 1 to 3 mm, upper lung zone predominan t lung nodules. The lungs are free of acute opacities. No pleural effusion or pneumothorax. No pathol ogically enlarged thoracic lymph nodes are identified. The heart size is normal. There is calcified c oronary artery atherosclerosis. There are bridging osteophytes at multiple levels in the spine, consi stent with diffuse idiopathic skeletal hyperostosis (DISH). IMPRESSION: 1. Moderate emphysema. 2. Scattered small pulmonary nodules without significant change, likely old granulomatous disease. Reviewed, dictated and finalized at location L. IMPRESSION: 1. Moderate emphysema. 2. Scattered small pulmonary nodules without significant change, likely old gra nulomatous disease.
== END 2022-06-01 07:41 | disposition home or self-care (01) ==
PROVIDERS: PCP Internal Medicine; Visit Provider Internal Medicine
DX: R05.9 Cough, unspecified (principal); Z87.891 Personal history of nicotine dependence; J43.9 Emphysema, unspecified; R91.8 Other nonspecific abnormal finding of lung field
CPT/HCPCS: 71250

== ENCOUNTER 2023-06-08 16:29 | Outpatient (CLI) | payer MEDICARE, SELFPAY ==
--- NOTE | ~2023-06-08 | CT_ITS ---
EXAMINATION: CT lung screening DATE: 06/08/2023 16:50 INDICATION: F17.210 - Nicotine dependence, cigarettes, uncomplicated TECHNIQUE: Computed tomography (CT) of the chest was performed without intravenous contrast. Addition al 3D reconstructions utilizing coronal maximum intensity projection (MIP) were performed. Automated exposure control and iterative reconstruction technique were employed. The dose-length product was 27 3.62 mGy-cm. COMPARISON: None FINDINGS: Mild upper lung predominant emphysema. Tiny calcified right upper lobe nodule consistent with old gra nulomatous disease. There are 3 relatively flat juxtapleural nodules, one in the right upper lobe mahogany suring 5 x 2 mm and a couple additional along the right minor fissure, the larger measuring 7 x 2 mm . No other suspicious pulmonary nodules, pneumonia, pulmonary edema or pleural effusion. Heart size i s normal. Atherosclerotic coronary artery calcification. No pericardial effusion. Thoracic aorta is n ormal in caliber. No pathologically enlarged thoracic lymphadenopathy. Postoperative changes along co uple loops of bowel in the upper abdomen. Mild thoracic spondylosis with bridging osteophytes at mult iple levels consistent with diffuse idiopathic skeletal hyperostosis (DISH). IMPRESSION: 1. Lung-RADS category 2: Benign appearance or behavior. Continue annual screening with noncontrast lo w-dose chest CT in 12 months. Reviewed, dictated and finalized at location A. IMPRESSION: 1. Lung-RADS category 2: Benign appearance or behavior. Continue annual screeni ng with noncontrast low-dose chest CT in 12 months.
== END 2023-06-08 16:30 | disposition home or self-care (01) ==
PROVIDERS: PCP Internal Medicine; Visit Provider Internal Medicine
DX: Z12.2 Encounter for screening for malignant neoplasm of respiratory organs (principal); F17.210 Nicotine dependence, cigarettes, uncomplicated
CPT/HCPCS: 71271

== ENCOUNTER 2023-06-13 11:39 | Outpatient (CLI) | payer MEDICARE, SELFPAY ==
--- NOTE | ~2023-06-13 | XR_ITS ---
Lumbosacral Spine: AP and lateral views Clinical History: Pain Findings: The normal lordotic curve is maintained. The vertebral bodies and posterior elements are i ntact. There is moderate degenerative disc narrowing at L3-L4 L4-L5. There is severe facet arthropath y from L4 through S1. There is mild to moderate facet arthropathy the upper lumbar spine. The sacroil iac joints are normally outlined. Impression: Moderate to advanced degenerative spondylosis, as above. Reviewed, dictated and finalized at location M. Impression: Moderate to advanced degenerative spondylosis, as above.
== END 2023-06-13 11:40 | disposition home or self-care (01) ==
LOC: ANHIMG 11:42
PROVIDERS: PCP Internal Medicine; Visit Provider Internal Medicine
DX: M47.896 Other spondylosis, lumbar region (principal); G89.29 Other chronic pain
CPT/HCPCS: 72100

== ENCOUNTER 2023-06-21 08:24 | Outpatient (CLI) | payer MEDICARE, SELFPAY ==
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
== END 2023-06-21 08:25 | disposition home or self-care (01) ==
PROVIDERS: PCP Internal Medicine; Visit Provider Psychiatry & Neurology Neurology
DX: R41.3 Other amnesia (principal); E11.42 Type 2 diabetes mellitus with diabetic polyneuropathy; I73.9 Peripheral vascular disease, unspecified; J43.9 Emphysema, unspecified; M54.50 Low back pain, unspecified; Z87.828 Personal history of other (healed) physical injury and trauma
CPT/HCPCS: 70551

== ENCOUNTER 2023-12-26 08:51 | Outpatient (CLI) | payer MEDICARE, SELFPAY ==
--- NOTE | ~2023-12-26 | MR_ITS ---
EXAMINATION: MRA brain wo con DATE: 12/26/2023 10:05 INDICATION: Occlusion and stenosis of unspecified vertebral artery. Cerebral infarction. TECHNIQUE: Magnetic resonance angiography (MRA) of the brain was performed without intravenous contra st with T1-weighted SPGR by the 3D [id number] technique. Maximum intensity projection 3D-reconstr uctions were obtained. COMPARISON: Brain MRI 06/21/2023 FINDINGS: Right vertebral artery is dominant. There is no significant stenosis of basilar artery or the posteri or cerebral arteries. The posterior communicating arteries are normal. There is no significant stenos is of the intracranial internal carotid arteries or anterior or middle cerebral arteries. Anterior co mmunicating artery is normal. There is no aneurysm. IMPRESSION: 1. Normal MRA. Reviewed, dictated and finalized at location B. IMPRESSION: 1. Normal MRA.
== END 2023-12-26 08:52 | disposition home or self-care (01) ==
PROVIDERS: PCP Internal Medicine; Visit Provider Psychiatry & Neurology Neurology
DX: I65.09 Occlusion and stenosis of unspecified vertebral artery (principal); I63.9 Cerebral infarction, unspecified
CPT/HCPCS: 70544